=== PATIENT | male | born 1955 | race Caucasian/White ===

== ENCOUNTER 2017-04-05 12:49 | Emergency (ER) | payer SELFPAY ==
[2017-04-05 13:03] VITALS: BMI 29.6
[2017-04-05 13:08] VITALS: TEMP 98
--- NOTE | 2017-04-05 14:14 | ED PDOC ---
Arrival/HPI - General Chief Complaint: Weakness/Neurological Deficit Time Seen by Provider: 04/05/17 14:10 - History of Present Illness Narrative History of Present Illness (Text): 04/05/17 14:14 61yo male presents after a stressful episode at work. Pt states he was in a verbal altercation with a co-worker, after which he felt very emotional and started crying. states that he felt weak and wanted to sit down, and states his co-workers helped him sit. Pt states he came down and felt well. States he did not have chest pain or palpitations, states he did not feel like he was going to pass out. Denies sob/reyes. States he feels well. States he feels safe at home and work. States he has no suicidal or homicidal ideations. No other complaints. Past Medical History - Provider Review Nursing Documentation Reviewed: Yes - Infectious Disease Hx of Infectious Diseases: None - Cardiac Hx Hypertension: Yes - Psychiatric Hx Substance Use: No - Surgical History Other/Comment: R foot surgery. Varicose veins - Anesthesia Hx Anesthesia: Yes Hx Anesthesia Reactions: No Hx Malignant Hyperthermia: No Family/Social History Family/Social History: Unknown Family HX Smoking Status: Never Smoked Hx Alcohol Use: No Hx Substance Use: No Allergies/Home Meds Allergies/Adverse Reactions: Allergies No Known Allergies Allergy (Verified 04/05/17 13:03) Home Medications: Home Meds Medication Instructions Recorded Confirmed Atorvastatin [Lipitor] 1 tab PO Q2D 04/05/17 04/05/17 Zolpidem [Ambien] 1 tab PO HS 04/05/17 04/05/17 amLODIPine [Norvasc] 1 tab PO DAILY 04/05/17 04/05/17 Physical Exam - Physical Exam Narrative Physical Exam (Text): 04/05/17 14:18 - Review of Systems Constitutional: Normal. absent: Fatigue, Weight Change, Fevers Eyes: Normal ENT: denies sore throat, denies tristhmus Respiratory: Normal. absent: SOB, Cough, Sputum Cardiovascular: absent: Chest Pain, Palpitations, Syncope Gastrointestinal: Normal. absent: Abdominal Pain, Diarrhea, Nausea, Vomiting Genitourinary: Normal. absent: Dysuria, Frequency, Hematuria Musculoskeletal: Normal. absent: Arthralgias, Back Pain, Neck Pain Skin: no rashes, no erythema Neurological: absent: Focal Weakness Endocrine: Normal Hemo/Lymphatic: Normal Psychiatric: No suicidal or homicidal ideations Physical exam Patient appears age appropriate in no distress, speaking full sentences without difficulty - Systems Exam Head: Present: Atraumatic, Normocephalic Pupils: Present: PERRL Extraocular Muscles: Present: EOMI Conjunctiva: Present: Normal Mouth: Present: Moist Mucous Membranes Neck: Present: Normal Range of Motion. No: MIDLINE TENDERNESS, Paraspinal Tenderness Respiratory/Chest: Present: Clear to Auscultation, Good Air Exchange. No: Respiratory Distress, Accessory Muscle Use, Tachypneic Cardiovascular: Present: Regular Rate and Rhythm, Normal S1, S2, Peripheal Pulses Present. No: Murmurs Abdomen: Present: Normal Bowel Sounds. No: Tenderness, Distention, Peritoneal Signs, Rebound, Guarding Back: Present: Normal Inspection. No: Midline Tenderness, Paraspinal Tenderness Upper Extremity: Present: Normal Inspection. No: Cyanosis, Edema Lower Extremity: Present: Normal Inspection. No: Edema Neurological: Present: GCS=15, Speech Normal, cranial nerves II through XII fully intact with no cerebellar abnormality, neurosensory fully intact. No focal neurological deficits. Skin: Present: Warm, Dry, Normal Color. No: Rashes Lymphatic: Present: OX3, NI, NC Psychiatric: Present: Alert, Oriented x 3, Normal Insight, Normal Concentration Vital Signs Reviewed: Yes Vital Signs Temp Pulse Resp BP Pulse Ox 04/05/17 13:07 98.0 F 85 18 155/92 H 96 Temperature: Afebrile Blood Pressure: Hypertensive (asymptomatic) Pulse: Regular Respiratory Rate: Normal Appearance: Positive for: Well-Appearing Pain Distress: None Mental Status: Positive for: Alert and Oriented X 3 Medical Decision Making ED Course and Treatment: 04/05/17 14:18 pt currently in no distress and denies complaints no acute findings on PE EKG shows normal sinus, RBBB, 72bpm. interpreted by me pt expressed wishes to be dc'd home and again states that he feels well states his PMD is Dr. Liza Restrepo with whom he can f/u copy of EKG given to pt and he was instructed to f/u with PMD and director of logistics for further w/u Pt states he understands to return to the ER right away for new or worsening symptoms or for inability to f/u with PMD or specialist as instructed. Patient states that he fully agrees with and understands discharge instructions. States that he agrees with the plan and disposition. Verbalized and repeated discharge instructions and plan. I have given the patient opportunity to ask any additional questions. Disposition/Present on Arrival - Present on Arrival Any Indicators Present on Arrival: No History of DVT/PE: No History of Uncontrolled Diabetes: No Urinary Catheter: No History of Decub. Ulcer: No History Surgical Site Infection Following: None - Disposition Have Diagnosis and Disposition been Completed?: Yes Diagnosis: Stress at work Disposition: HOME/ ROUTINE Disposition Time: 14:13 Patient Plan: Discharge Condition: GOOD Discharge Instructions (ExitCare): Near Syncope (ED), Stress (ED) Additional Instructions: PLEASE RETURN TO THE EMERGENCY DEPARTMENT FOR NEW OR WORSENING SYMPTOMS. RETURN RIGHT AWAY IF YOU CANNOT FOLLOW UP WITH YOUR PRIMARY CARE DOCTOR, CLINIC, OR SPECIALIST IN 1-2 DAYS. Referrals: Kiana Restrepo MD [Primary Care Provider] - Follow up with primary Shelli Mcbride MD [Staff Provider] - Follow up with primary Mina Roa MD [Staff Provider] - Follow up with primary
[2017-04-05 15:31] VITALS: BP 150/91; PULSE 74; RESP 17; O2SAT 99
--- NOTE | 2017-04-05 21:01 | CARD ---
APPROVED REPORT EKG Measurement Heart [id number] <Conclusion> Normal sinus rhythm Right bundle branch block Inferior infarct, age undetermined Abnormal ECG
== END 2017-04-05 14:35 | disposition home or self-care (01) ==
LOC: ED 12:49
DX: F43.9 Reaction to severe stress, unspecified (principal)